=== PATIENT | female | born 1965 | race Hispanic/Latino ===

== ENCOUNTER 2018-06-13 09:23 | Emergency (ER) | payer BC ==
[2018-06-13 09:32] VITALS: TEMP 97.9
[2018-06-13] MEDS ORDERED: Sodium Chloride 0.9% 1,000 ML IV ONE (09:46)
[2018-06-13] MEDS ORDERED: Sodium Chloride 0.9% 1,000 ML ONE (09:59)
--- NOTE | 2018-06-13 10:03 | C.PDOC ---
History Of Present Illness 52 y/o female,w/PMhx of HIV, Hepatitis C, and gastric ulcers, presents to the ER complaining of vomiting, abdominal pain, and diarrhea which has been present for the past 3 days. Patient states that she was admitted for a type of bowel infection in [facility] [place] in [place].Denies having fever,chills, CP, SOB, dysuria, and hematuria. Time Seen by Provider: 06/13/18 09:31 Chief Complaint (Nursing): Abdominal Pain History Per: Patient History/Exam Limitations: no limitations Onset/Duration Of Symptoms: Days Current Symptoms Are (Timing): Still Present Severity: Moderate Location Of Pain/Discomfort: Diffuse Quality Of Discomfort: Cramping Past Medical History Reviewed: Historical Data, Nursing Documentation, Vital Signs Vital Signs: Last Vital Signs Temp 97.9 F 06/13/18 09:28 Pulse 92 H 06/13/18 09:28 Resp 20 06/13/18 09:28 BP 152/102 H 06/13/18 09:28 Pulse Ox 99 06/13/18 09:28 - Medical History PMH: Anxiety, Depression, Gastritis, HTN Other Surgeries: Hx of surgeries Family History: States: No Known Family Hx - Social History Hx Tobacco Use: Yes Hx Alcohol Use: No Hx Substance Use: Yes - Immunization History Hx Tetanus Toxoid Vaccination: No Hx Influenza Vaccination: No Hx Pneumococcal Vaccination: No Review Of Systems Except As Marked, All Systems Reviewed And Found Negative. Constitutional: Negative for: Fever, Chills Cardiovascular: Negative for: Chest Pain Respiratory: Negative for: Shortness of Breath Gastrointestinal: Positive for: Vomiting, Abdominal Pain, Diarrhea Genitourinary: Negative for: Dysuria, Hematuria Physical Exam - Physical Exam Appears: Non-toxic, No Acute Distress Skin: Normal Color, Warm, Dry Head: Atraumatic, Normacephalic Eye(s): bilateral: Normal Inspection Nose: Normal Oral Mucosa: Moist Teeth: No Normal Dentition (poor dentition) Neck: Normal, Supple Chest: Symmetrical Cardiovascular: Rhythm Regular Respiratory: Normal Breath Sounds, No Rales, No Rhonchi, No Wheezing Gastrointestinal/Abdominal: Normal Exam, Soft, No Tenderness, No Guarding, No Rebound Extremity: Normal ROM Neurological/Psych: Oriented x3, Normal Speech Gait: Steady ED Course And Treatment - Laboratory Results Result Diagrams: 06/13/18 10:01 06/13/18 10:01 Lab Interpretation: Normal O2 Sat by Pulse Oximetry: 99 (RA) Pulse Ox Interpretation: Normal - Other Rad No standard instances X-Ray: Read By Radiologist - CT Scan/US No standard instances Other Rad Studies (CT/US): Read By Radiologist, Radiology Report Reviewed CT/US Interpretation: FINDINGS: CHEST: Heart size appears within normal limits. Atherosclerotic calcifications of the aorta. No focal consolidation, significant pleural effusion, or definite pneumothorax. Please note that chest x-ray has limited sensitivity for the detection of pulmonary masses. ABDOMEN AND PELVIS: Nonobstructive bowel gas pattern. No definite free air. Cholecystectomy clips. IVC filter. Osseous demineralization limits evaluation for acute fracture lines. Degenerative changes of the spine. Left 9th chronic appearing rib fracture deformity. Deformity of the right superior and inferior pubic ramus and pubic symphysis; may be chronic fracture deformity. Correlate clinically. IMPRESSION: Nonobstructive bowel gas pattern. Left 9th chronic appearing rib fracture deformity. Deformity of the right superior and inferior pubic ramus and pubic symphysis; may be chronic fracture deformity. Correlate clinically. Osseous demineralization. Degenerative changes. Cholecystectomy clips. IVC filter. Progress Note: Treated with IVF NSS, toradol and zofran. Patient requesting ativan and toradol. Treated with toradol and ativan. On re-evaluation requesting a prescription for xanax. abdomen soft non-tender Reassessment Condition: Improved Medical Decision Making Medical Decision Making: Plan: --Labs --UA --X-Ray-Obs Series --Ativan IV --Bentyl IM --IV Fluids --Toradol IM --Zofran IV Disposition Counseled Patient/Family Regarding: Studies Performed, Diagnosis, Need For Followup, Rx Given - Disposition Referrals: [facility] [Outside] [facility] [employer] [facility] [Outside] Disposition: HOME/ ROUTINE Disposition Time: 14:00 Condition: STABLE Prescriptions: Dicyclomine [Bentyl] 20 mg PO Q6 PRN #20 tab PRN Reason: Irritable Bowel Symptoms Instructions: Viral Gastroenteritis, Acute Abdomen (Belly Pain), Adult (DC) Forms: [facility] (Yoruba) - POA Present On Arrival: None - Clinical Impression Clinical Impression: Abdominal pain, Benzodiazepine dependence, Gastroenteritis - PA / [employer]RATOR / Resident Statement MD/DO has reviewed & agrees with the documentation as recorded. - Scribe Statement The provider has reviewed the documentation as recorded by the Scribe Luis Velasco Provider Attestation All medical record entries made by the Scribe were at my direction and personally dictated by me. I have reviewed the chart and agree that the record accurately reflects my personal performance of the history, physical exam, medical decision making, and the department course for this patient. I have also personally directed, reviewed, and agree with the discharge instructions and d isposition.
[2018-06-13 10:05] LABS: BASO # 0.1 K/uL (0.0-0.2); BASO % 1.4 % (0.0-2.0); EOS % 0.3 % (0.0-4.0); HEMOGLOBIN 13.4 g/dL (11.0-16.0); LYMPH # 1.1 K/uL (1.0-4.3); LYMPH % 22.6 % (20.0-40.0); MEAN CELL VOLUME 97.2 fL (81.0-99.0); MEAN CORPUSCULAR HEMOGLOBIN 31.4 pg (27.0-31.0); MEAN CORPUSCULAR HGB CONC 32.3 g/dL (33.0-37.0); MONO # 0.5 K/uL (0.0-0.8); MONO % 10.5 % (0.0-10.0); NEUT % 65.2 % (50.0-75.0); NRBC % 0.1 % (0.0-2.0); RBC 4.28 Mil/uL (3.80-5.20); WHITE BLOOD COUNT 4.7 K/uL (4.8-10.8)
[2018-06-13 10:17] LABS: ALB/GLOB RATIO 1.3 (1.0-2.1); ALBUMIN 5.1 g/dL (3.5-5.0); ALT/SGPT 26 U/L (9-52); AST/SGOT 34 U/L (14-36); BLOOD UREA NITROGEN 20 mg/dL (7-17); CALCIUM 9.1 mg/dl (8.6-10.4); GFR NON-AFRICAN AMERICAN > 60; LIPASE 225 U/L (23-300)
[2018-06-13] MEDS ORDERED: Iohexol 240 (50 ml) PO STA (10:19)
[2018-06-13 10:22] LABS: SQUAMOUS EPITHIAL < 1 /hpf (0-5); URINE AMORPHOUS SEDIMENT RARE /ul (<OCC); URINE BILIRUBIN NEGATIVE (NEGATIVE); URINE BLOOD NEGATIVE (NEGATIVE); URINE CLARITY Hazy (Clear); URINE COLOR Yellow (YELLOW); URINE GLUCOSE (UA) NORMAL (Normal); URINE LEUKOCYTE ESTERASE NEG Leu/uL (Negative); URINE PROTEIN NEGATIVE (NEGATIVE); URINE UROBILINOGEN NORMAL mg/dL (0.2-1.0)
[2018-06-13] MEDS ORDERED: Iohexol 240 (50 ml) ONE (10:26)
--- NOTE | 2018-06-13 10:38 | RAD ---
Date of service: 06/13/2018 PROCEDURE: Radiographs of the chest and abdomen (obstructive series) HISTORY: Abd Pain COMPARISON: None available. TECHNIQUE: AP radiograph of the chest, with upright and supine radiographs of the abdomen. FINDINGS: CHEST: Heart size appears within normal limits. Atherosclerotic calcifications of the aorta. No focal consolidation, significant pleural effusion, or definite pneumothorax. Please note that chest x-ray has limited sensitivity for the detection of pulmonary masses. ABDOMEN AND PELVIS: Nonobstructive bowel gas pattern. No definite free air. Cholecystectomy clips. IVC filter. Osseous demineralization limits evaluation for acute fracture lines. Degenerative changes of the spine. Left 9th chronic appearing rib fracture deformity. Deformity of the right superior and inferior pubic ramus and pubic symphysis; may be chronic fracture deformity. Correlate clinically. IMPRESSION: Nonobstructive bowel gas pattern. Left 9th chronic appearing rib fracture deformity. Deformity of the right superior and inferior pubic ramus and pubic symphysis; may be chronic fracture deformity. Correlate clinically. Osseous demineralization. Degenerative changes. Cholecystectomy clips. IVC filter.
[2018-06-13] MEDS ORDERED: Iodixanol 320 MG/ML 100 ML BOTTLE IV ONE (12:26)
--- NOTE | 2018-06-13 13:41 | CT ---
PROCEDURE: CT Abdomen and Pelvis with oral and IV contrast. HISTORY: pain COMPARISON: Obstructive series performed 06/13/18 TECHNIQUE: Contiguous axial images of the abdomen and pelvis. Oral and IV contrast was administered. Coronal and Sagittal reformats generated and reviewed. Contrast dose: 100 mL Visipaque 320 IV Radiation dose: Total exam DLP = 272.35 mGy-cm. This CT exam was performed using one or more of the following dose reduction techniques: Automated exposure control, adjustment of the mA and/or kV according to patient size, and/or use of iterative reconstruction technique. FINDINGS: LOWER THORAX: No visible consolidation, pleural effusion, or pneumothorax. 6 mm right lung base calcified granuloma. Small pericardial effusion. Small hiatal hernia/distal esophageal wall thickening. LIVER: 5 mm too small to characterize hepatic dome hypodensity with possible peripheral calcifications. GALLBLADDER AND BILE DUCTS: Mild intrahepatic and extrahepatic biliary ductal dilatation in the setting of cholecystectomy. PANCREAS: Unremarkable. SPLEEN: Unremarkable. ADRENALS: Unremarkable. KIDNEYS AND URETERS: The kidneys enhance symmetrically. No hydronephrosis or obstructing renal calculus. BLADDER: Under distension of the urinary bladder limits evaluation. REPRODUCTIVE: Uterus is present. APPENDIX: The appendix is not identified. No secondary signs of acute appendicitis. BOWEL: The stomach is nondistended. The bowel loops appear within normal limits of caliber without evidence of intestinal obstruction. PERITONEUM: No significant free fluid. No definite free air. LYMPH NODES: No bulky lymphadenopathy identified. VASCULATURE: No aortic aneurysm. Atherosclerotic calcifications of the aorta. IVC filter. BONES: Chronic appearing deformity of the pubic symphysis. Chronic appearing left 9th and 10th rib fracture deformities. OTHER FINDINGS: None. IMPRESSION: Too small to characterize 5 mm hepatic dome hypodensity with possible peripheral calcifications. Mild intrahepatic and extrahepatic biliary ductal dilatation in the setting of cholecystectomy. IVC filter. Small pericardial effusion. Small hiatal hernia/distal esophageal wall thickening. 6 mm right lung base calcified granuloma. Additional findings as above.
[2018-06-13 14:34] VITALS: BP 134/96; PULSE 79; RESP 16
[2018-06-13 15:26] VITALS: O2SAT 99
== END 2018-06-13 14:32 | disposition home or self-care (01) ==
LOC: C.ER 09:23
DX: K52.9 Noninfective gastroenteritis and colitis, unspecified (principal); F13.20 Sedative, hypnotic or anxiolytic dependence, uncomplicated; R10.9 Unspecified abdominal pain; I10 Essential (primary) hypertension; F17.210 Nicotine dependence, cigarettes, uncomplicated
CPT/HCPCS: 74022; 74177; 80053; 81001; 83690; 85025; 96361; 96372; 96374; 96375; 96376; 99285; J0500; J1885; J2060; J2405; J7030; Q9966; Q9967